=== PATIENT | male | born 1975 | race African-American/Black ===

== ENCOUNTER 2016-12-12 16:18 | Emergency (ER) | payer SELFPAY ==
[~2016-12-12] VITALS: Ht 188 cm; Wt 87.3 kg
[2016-12-12] MEDS ORDERED: MORPHINE SULFATE 4 MG/ML, 1ML IVPush PRN (17:00)
[2016-12-12 18:01] VITALS: BP 115/57
== END 2016-12-12 18:04 | disposition home or self-care (01) ==
LOC: ED 16:42
DX: S89.92XA Unspecified injury of left lower leg, initial encounter (principal); M25.562 Pain in left knee; W01.0XXA Fall on same level from slipping, tripping and stumbling without subsequent striking against object, initial encounter; Y93.67 Activity, basketball; Y92.89 Other specified places as the place of occurrence of the external cause; Y99.8 Other external cause status
CPT/HCPCS: 99283

== ENCOUNTER 2017-02-11 15:58 | Emergency (ER) | payer OTHER ==
[~2017-02-11] VITALS: Ht 188 cm; Wt 88.3 kg
[2017-02-11 15:58] VITALS: BP 138/83
[2017-02-11] MEDS ORDERED: CEFTRIAXONE 250 MG IM ONE (16:30)
[2017-02-11] MEDS ORDERED: AZITHROMYCIN 500 MG TABLET PO ONE (16:30)
== END 2017-02-11 17:04 | disposition home or self-care (01) ==
LOC: ED 16:58
DX: R30.0 Dysuria (principal); Z20.2 Contact with and (suspected) exposure to infections with a predominantly sexual mode of transmission
CPT/HCPCS: 87491; 87591; 96372; 99284; J0696

== ENCOUNTER 2019-06-19 04:52 | Inpatient (IN) | payer OTHER ==
[~2019-06-19] VITALS: Ht 190.5 cm; Wt 92.1 kg
[2019-06-19] MEDS ORDERED: FURO40TA6 PO (04:57)
[2019-06-19] MEDS ORDERED: SODIUM CHLORIDE FLUSH 10ML SYR IVF ONE (05:30)
[2019-06-19 06:01] LABS: ALANINE AMINOTRANSFERASE 31 U/L (12-78); ALBUMIN 0.9 g/dL (3.4-5.0); ANION GAP 12 mmol/L (5-15); CALCIUM 7.2 mg/dL (8.5-10.1); CHLORIDE 115 mmol/L (98-107); MEAN CORPUSCULAR HEMOGLOBIN 28.2 pg (27.5-34.5); MEAN CORPUSCULAR HGB CONC 32.5 g/dL (33.2-36.2); MEAN CORPUSCULAR VOLUME 86.7 fL (81-97); MEAN PLATELET VOLUME 8.2 fL (7.4-10.4); PLATELET COUNT 510 x10^3/uL (130-400); RED BLOOD COUNT 3.72 x10^6/uL (4.38-5.82); RED CELL DISTRIBUTION WIDTH 14.1 % (9.4-14.8)
[2019-06-19 06:02] LABS: MICROSCOPIC INDICATED
[2019-06-19 06:04] LABS: ALKALINE PHOSPHATASE 69 U/L (45-117); BILIRUBIN,TOTAL 0.2 mg/dL (0.2-1.0); TOTAL PROTEIN 4.8 g/dL (6.4-8.2)
[2019-06-19 06:09] LABS: CULTURE INDICATED? NO
[2019-06-19 06:17] LABS: MD YES
[2019-06-19 06:25] LABS: EOS#(MANUAL) 0.76 x10^3/uL (0.0-0.4); EOS% (MANUAL) 6 % (1-7); LYMPHS% (MANUAL) 11 % (22-44); MONOS#(MANUAL) 0.51 x10^3/uL (0.3-2.7); MONOS% (MANUAL) 4 % (2-9); SEG#(MANUAL) 10.03 x10^3/uL (1.8-6.8); SEGS% (MANUAL) 79 % (42-75)
[2019-06-19 06:26] LABS: <PLATELET ESTIMATE> INCREASED; POLYCHROMASIA 1+
[2019-06-19 06:27] LABS: <PLT MORPHOLOGY> NORMAL PLT MORPH
--- NOTE | 2019-06-19 06:48 | NUR ---
REPORT RECEIVED FROM VANDANA CASILLAS.
[2019-06-19] MEDS ORDERED: POTASSIUM CHLORIDE 20 MEQ TAB.ER.PRT ONE ×2 (06:49→17:31)
[2019-06-19] MEDS ORDERED: POTASSIUM CHLORIDE 20 MEQ TAB.ER.PRT PO ONE ×2 (07:00→17:30)
--- NOTE | 2019-06-19 07:09 | NUR ---
PT MEDICATED PER EMAR. PT TOLERATED WELL. PT'S AOX4. RESPS EVEN AND UNLABORED.
--- NOTE | 2019-06-19 07:28 | NUR ---
REPORT GIVEN TO ALIA CASILLAS. ALL QUESTIONS ANSWERED.
[2019-06-19 08:17] VITALS: BP 152/108
[2019-06-19] MEDS ORDERED: ONDANSETRON 2MG/ML, 2ML IVPush PRN (10:00)
[2019-06-19] MEDS ORDERED: ACETAMINOPHEN 325 MG TABLET PO PRN (10:00)
[2019-06-19] MEDS ORDERED: ONDANSETRON ODT 4 MG PO PRN (10:00)
[2019-06-19] MEDS: ALBUMIN HUMAN 25% 100 ML IV SCH ×2 (10:28→20:27)
[2019-06-19 10:35] LABS: CREATININE,URINE RANDOM 93.3 mg/dL
[2019-06-19 13:56] VITALS: BP 162/91
[2019-06-19] MEDS ORDERED: CARVEDILOL 3.125 MG TABLET ONE (15:10)
[2019-06-19] MEDS: CARVEDILOL 3.125 MG TABLET PO SCH ×2 (15:12→20:52)
[2019-06-19] MEDS ORDERED: FUROSEMIDE 40 MG/4 ML IV SCH (17:00)
[2019-06-19 19:30] VITALS: BP 172/97
[2019-06-19 20:50] VITALS: BP 184/114
[2019-06-19 21:33] VITALS: BP 169/110
[2019-06-20 00:57] VITALS: BP 180/117
[2019-06-20] MEDS ORDERED: hydrALAzine 20 MG/ML, 1ML IV ONE (01:00)
[2019-06-20 01:33] VITALS: BP 186/124
[2019-06-20] MEDS ORDERED: LABETALOL 5MG/ML, 20ML IVPush ONE (02:00)
[2019-06-20 02:45] VITALS: BP 162/95
[2019-06-20 05:05] VITALS: BP 177/107
[2019-06-20 06:06] LABS: MEAN CORPUSCULAR HEMOGLOBIN 27.9 pg (27.5-34.5); MEAN CORPUSCULAR HGB CONC 31.7 g/dL (33.2-36.2); MEAN PLATELET VOLUME 8.5 fL (7.4-10.4); PLATELET COUNT 475 x10^3/uL (130-400); RED BLOOD COUNT 3.55 x10^6/uL (4.38-5.82); RED CELL DISTRIBUTION WIDTH 14.6 % (9.4-14.8)
[2019-06-20 06:11] LABS: ALBUMIN 1.2 g/dL (3.4-5.0); CHLORIDE 117 mmol/L (98-107); CREATININE 7.34 mg/dL (0.7-1.3); TOTAL IRON BINDING CAPACITY 60 mcg/dL (250-450)
[2019-06-20 06:13] LABS: ALANINE AMINOTRANSFERASE 26 U/L (12-78); ALBUMIN 1.3 g/dL (3.4-5.0); ANION GAP 10 mmol/L (5-15); CALCIUM 7.1 mg/dL (8.5-10.1); CHLORIDE 116 mmol/L (98-107)
[2019-06-20 06:16] LABS: % IRON SATURATION 62 % (20-55); ALKALINE PHOSPHATASE 53 U/L (45-117); ANION GAP 10 mmol/L (5-15); BILIRUBIN,TOTAL 0.2 mg/dL (0.2-1.0); CALCIUM 6.9 mg/dL (8.5-10.1); IRON LEVEL 37 mcg/dL (65-175); TOTAL PROTEIN 4.4 g/dL (6.4-8.2)
[2019-06-20 06:18] LABS: MD YES
[2019-06-20 06:20] LABS: BAND#(MANUAL) 0.13 x10^3/uL; BANDS%(MANUAL) 1 % (0-7); EOS#(MANUAL) 0.26 x10^3/uL (0.0-0.4); EOS% (MANUAL) 2 % (1-7); LYMPH#(MANUAL) 1.92 x10^3/uL (1-3.4); LYMPHS% (MANUAL) 15 % (22-44); MONOS#(MANUAL) 1.92 x10^3/uL (0.3-2.7); MONOS% (MANUAL) 15 % (2-9); SEG#(MANUAL) 8.58 x10^3/uL (1.8-6.8); SEGS% (MANUAL) 67 % (42-75)
[2019-06-20 06:27] LABS: <PLATELET ESTIMATE> INCREASED; <PLT MORPHOLOGY> NORMAL PLT MORPH
[2019-06-20 08:06] VITALS: BP 166/100
[2019-06-20] MEDS ORDERED: POTASSIUM CHLORIDE 20 MEQ TAB.ER.PRT PO SCH (17:00)
== END 2019-06-20 09:15 | disposition left against medical advice (07) | DRG 683 ==
LOC: ED 05:44 → EDIP 06:42 → 4EST 08:11
PROVIDERS: ADMIT Internal Medicine; ATTEND Internal Medicine
DX: N17.9 Acute kidney failure, unspecified (principal); E87.2 Acidosis; D64.9 Anemia, unspecified; E87.6 Hypokalemia; F12.90 Cannabis use, unspecified, uncomplicated; I12.9 Hypertensive chronic kidney disease with stage 1 through stage 4 chronic kidney disease, or unspecified chronic kidney disease; N18.9 Chronic kidney disease, unspecified
CPT/HCPCS: 36415; 71045; 80053; 80069; 81001; 82306; 82570; 82728; 83540; 83550; 83735; 83880; 84156; 85025; 93005; 99285; G0378; J1940; P9047; J0360